=== PATIENT | female | born 1945 | race Caucasian/White ===

== ENCOUNTER 2021-04-05 02:35 | Day surgery (SDC) | payer MEDICARE, SELFPAY ==
[2021-03-19 12:36] VITALS: BMI 25.7
--- NOTE | 2021-04-02 18:27 | WPDANESEPPF ---
Anes - Initial Pre Proc Eval Procedure: Operation Date: 04/05/21 10:30 Proposed Procedures p Colonoscopy - Stephen Thompson MD Date/Time: 04/02/21 18:27 Surgeon: Stephen Thompson MD Pre Op Diagnosis: positive cologuard Patient Data Age: 75 Gender: F Height: 1.6 m Weight: 65.9 kg Allergies Allergy/AdvReac Type Severity Reaction Status Date / Time codeine Allergy Mild NAUSEA AND Verified 04/05/21 09:25 VOMITING latex Allergy Mild HANDS GET Verified 04/05/21 09:25 RED AND BLISTERS Home Medications Medication Instructions Recorded Confirmed Type jzhbacb-zrhnnxkfxfrih-zlysccos 1 tablet PO Q4-6H PRN 03/19/21 03/19/21 History [Excedrin Extra Strength] atorvastatin 10 mg PO DAILY 03/19/21 03/19/21 History escitalopram oxalate 5 mg PO DAILY 03/19/21 03/19/21 History lisinopril 10 mg PO HS 03/19/21 03/19/21 History lorazepam 0.5 mg PO TID PRN 03/19/21 03/19/21 History Patient hx anesthesia problems: none Family hx anesthesia problems: none Results Review: All pre-operative results and documents have been reviewed as part of the pre-operative evaluation. [facility] Past Medical History Medical History (Updated 04/02/21 @ 18:28 by Arash Magdaleno DO) Anxiety Hypertension Surgical History Surgical History (Updated 04/02/21 @ 18:28 by Arash Magdaleno DO) History of hysterectomy History of right hip replacement History of spinal surgery Social History Social History Years smoked: 20 Tobacco type: cigarettes Living arrangements: alone Spiritual care concerns: No Anes - Eval Final PreProcedure Day of Procedure 04/02/21 18:27 Patient weight: overweight Heart: regular rate and rhythm Lungs: clear to auscultation and normal air movement Airway: Mallampati scale class II Neurological: alert and oriented Last oral intake: >/= 8 hours ASA classification: II Emergent: no Anesthetic plan: proceed Anesthesia type and monitoring: general GIVS and standard monitoring Results Review: All pre-operative results and documents have been reviewed as part of the pre-operative evaluation. Informed Consent: The patient's anesthetic plan and its attendant risks and benefits were discussed with the patient/family/POA. Questions were solicited and answers provided to the satisfaction of the patient/family/POA.
[2021-04-05 09:26] VITALS: BP 119/64; PULSE 100; RESP 18; TEMP 36.8; O2SAT 100; BMI 25.4
[2021-04-05] MEDS: LACTATED RINGERS 1,000 ML 150 ML IV CONT (09:42)
--- NOTE | 2021-04-05 09:58 | PM.HPGS ---
History of Present Illness History of Present Illness Consent: Risks, benefits, and alternatives have been discussed and questions answered. Patient agrees to proceed with procedure. Chief complaint: positive cologuard Narrative: Brigette Benson is a 75 year old female here for colon cancer screening. She performed a Cologuard test that was positive PMFSH Past Medical History Medical History Anxiety Hypertension Surgical History Surgical History History of hysterectomy History of right hip replacement History of spinal surgery Social History Social History Years smoked: 20 Tobacco type: cigarettes Living arrangements: alone Spiritual care concerns: No Meds Home Medications and Allergies Home Medications Medication Instructions Recorded Confirmed Type cayomhz-dxnxofgiciotp-vuampinb 1 tablet PO Q4-6H PRN 03/19/21 03/19/21 History [Excedrin Extra Strength] atorvastatin 10 mg PO DAILY 03/19/21 03/19/21 History escitalopram oxalate 5 mg PO DAILY 03/19/21 03/19/21 History lisinopril 10 mg PO HS 03/19/21 03/19/21 History lorazepam 0.5 mg PO TID PRN 03/19/21 03/19/21 History Allergies Allergy/AdvReac Type Severity Reaction Status Date / Time codeine Allergy Mild NAUSEA AND Verified 04/05/21 09:25 VOMITING latex Allergy Mild HANDS GET Verified 04/05/21 09:25 RED AND BLISTERS Vital Signs Vital Signs - 24 hr 04/05/21 09:26 Temperature 36.8 C Pulse Rate 100 Respiratory Rate 18 Blood Pressure 119/64 Pulse Oximetry 100 Exam Resp: Auscultation: clear to auscultation bilaterally Cardio: Rate: regular rate Rhythm: regular rhythm GI: GI Palp: Yes Soft to palpation and No Tenderness to palpation present (GI) Assessment and Plan Assessment and plan (1) Colon cancer screening: Code(s): Z12.11 - Encounter for screening for malignant neoplasm of colon Status: Acute Assessment and Plan: Colonoscopy with possible biopsy or polypectomy or cautery or injection of substances.
[2021-04-05 10:23] VITALS: BP 84/45; PULSE 67; RESP 25; O2SAT 98
[2021-04-05 10:33] VITALS: BP 94/48; PULSE 75; RESP 22; O2SAT 98
[2021-04-05 10:41] VITALS: BP 98/60; PULSE 71; RESP 21; O2SAT 99
== END 2021-04-05 10:52 | disposition home or self-care (01) ==
PROVIDERS: PCP Internal Medicine; Visit Provider Internal Medicine Gastroenterology
PROC: 0DJD8ZZ Inspection of Lower Intestinal Tract, Via Natural or Artificial Opening Endoscopic (ICD-10-PCS; CPT 45378; principal; 2021-04-05 10:30)
DX: Z12.11 Encounter for screening for malignant neoplasm of colon (principal); K57.30 Diverticulosis of large intestine without perforation or abscess without bleeding; R19.5 Other fecal abnormalities; I10 Essential (primary) hypertension; F41.9 Anxiety disorder, unspecified; Z87.891 Personal history of nicotine dependence
CPT/HCPCS: G0121; J2704; J7120

== ENCOUNTER → 2022-11-29 09:09 | Outpatient (CLI) | payer MEDICARE, SELFPAY ==
--- NOTE | ~2022-11-29 | MR_ITS ---
EXAMINATION: MR cervical spine wo con DATE: 11/29/2022 09:57 INDICATION: Cervical radiculopathy. Neck pain. TECHNIQUE: Magnetic resonance imaging (MRI) of the cervical spine was performed without intravenous c ontrast. COMPARISON: None FINDINGS: There is 3 mm anterolisthesis of C3 on C4 and 2 mm anterolisthesis of C7 on T1. Vertebral b rodolfo heights are normal. There are changes of anterior fusion procedure from C4 to C6 with healed inte rbody bone graft. There is moderately decreased disc height at C6-C7 and mildly decreased disc height at C7-T1. The spinal cord signal intensity is normal. The following disc levels are specifically dis cussed: C2-C3: There is a central protrusion. There is no uncovertebral joint osteoarthritis. There is severe bilateral facet joint osteoarthritis. There is no neural foraminal stenosis. There is no central can al stenosis. C3-C4: There is a central extrusion. There is severe bilateral uncovertebral joint osteoarthritis. Th ere is severe bilateral facet joint osteoarthritis. There is moderate bilateral neural foraminal sten osis. There is mild central canal stenosis. C4-C5: There is mild bilateral uncovertebral joint hypertrophy. There is mild bilateral facet joint o steoarthritis. There is mild right neural foraminal stenosis. There is no central canal stenosis. C5-C6: There is moderate right and mild left uncovertebral joint hypertrophy. There is mild bilateral facet joint osteoarthritis. There is moderate right and mild left neural foraminal stenosis. There i s no central canal stenosis. C6-C7: The disc is bulging. There is severe bilateral uncovertebral joint osteoarthritis. There is se oneyda bilateral facet joint osteoarthritis. There is mild bilateral neural foraminal stenosis. There i s mild central canal stenosis. C7-T1: The disc does not extend beyond the endplate margin. There is no uncovertebral joint osteoarth ritis. There is severe bilateral facet joint osteoarthritis. There is mild bilateral neural foraminal stenosis. There is no central canal stenosis. IMPRESSION: 1. Moderate cervical spondylosis. 2. Anterior fusion procedure from C4 to C6. Reviewed, dictated and finalized at location A.
== END ==
PROVIDERS: PCP Internal Medicine; Visit Provider Internal Medicine
DX: M54.12 Radiculopathy, cervical region (principal); M43.02 Spondylolysis, cervical region; Z98.1 Arthrodesis status
CPT/HCPCS: 72141

== ENCOUNTER 2024-06-27 07:49 | Outpatient (CLI) | payer MEDICARE, SELFPAY ==
--- NOTE | ~2024-06-27 | DEXA_ITS ---
Bone Density Report Name: NORIS BROTHERS Age: 79 Sex: Female Ethnicity: White Date of : 1945 Indication: postmenopausal; screening for osteoporosis; height loss; hysterectomy; Referring Provider: PAULA*, DINO Rossi Study: Bone densitometry was performed. Exam Date: June 27, 2024 Accession number: [id number] Bone Density: Region BMD T-score Z-score Classification AP Spine(L1, L2) 1.185 1.9 4.3 Normal Femoral Neck (Left) 0.695 -1.4 0.9 Osteopenia Total Hip (Left) 0.821 -1.0 1.0 Normal World Health Organization criteria for BMD impression classify patients as: Normal (T-score at or above -1.0), Osteopenia (T-score between -1.0 and -2.5), or Osteoporosis (T-score at or below -2.5). 10-year Fracture Risk(1): Major Osteoporotic Fracture 13% Hip Fracture 2.9% Reported Risk Factors: [place] (), Neck BMD=0.695, BMI=25.3 (1) FRAX(R) Version 3.08. Fracture probability calculated for an untreated patient. Fracture probability may be lower if the patient has received treatment. Clinical Information Provided by Patient: Has the following medical conditions: Hysterectomy Patient maximum height was 64.5 Drinks caffeinated beverages Onset of menses at age 12 Number of children 2 Impression: The patient has low bone mass, based on the Left Femoral Neck T-score. The patient has an estimated ten-year risk of hip fracture of 2.9% and an estimated ten-year risk of major fracture of 13%, based on the WHO FRAX algorithm. Discussion: BONE DENSITY IS LOW AT ONE OR MORE SKELETAL SITES. This patient's lowest T-score is low at one or more skeletal sites. It meets the World Health Organization's (WHO) criteria for ?low bone mass? (T-score between -1.0 and -2.5). The patient's 10-year risk of fracture as calculated by FRAX is less than the threshold where pharmacological therapy is recommended by the National Osteoporosis Foundation (NOF). However, all treatment decisions require clinical judgment and consideration of individual patient factors, including patient preferences, comorbidities, previous drug use, risk factors not captured in the FRAX model (e.g., frailty, falls, vitamin D deficiency, increased bone turnover, interval significant decline in bone density) and possible under or overestimation of fracture risk by FRAX. The patient should follow a healthful lifestyle (good nutrition with adequate calcium and vitamin D, and appropriate weight-bearing exercise). Follow-Up: Consider repeating this study in 2 to 3 years to reassess this patient's status, or sooner if there is some new clinical indication. Reported by: CALEB on 06/27/2024 8:30:00 AM. Reviewed, dictated and finalized at location A. [facility]ITALMeliza
== END 2024-06-27 07:50 | disposition home or self-care (01) ==
LOC: ANHIMG 07:52
PROVIDERS: PCP Internal Medicine; Visit Provider Internal Medicine
DX: M85.852 Other specified disorders of bone density and structure, left thigh (principal); M81.0 Age-related osteoporosis without current pathological fracture
CPT/HCPCS: 77080

== ENCOUNTER 2024-09-12 08:49 | Outpatient (CLI) | payer MEDICARE, SELFPAY ==
--- NOTE | ~2024-09-12 | MR_ITS ---
EXAMINATION: MR lumbar spine wo con DATE: 09/12/2024 09:32 INDICATION: Low back pain. TECHNIQUE: Magnetic resonance imaging (MRI) of the lumbar spine was performed without intravenous con trast. COMPARISON: None FINDINGS: There is 5 degrees levocurvature of lumbar spine. There are changes of posterior fusion pro cedure from L3 to L5 with pedicle screws. There are Schmorl's nodes at multiple levels. There is mild ly decreased disc height at L1-L2, moderately decreased disc height at L2-L3, L3-L4, and L4-L5, and m ildly decreased disc height at L5-S1. The distal spinal cord signal intensity is normal. The conus me dullaris is at L1. The following disc levels are specifically discussed: L1-L2: The disc is bulging is an annular fissure. There is severe bilateral facet joint osteoarthriti s. There is mild bilateral neural foraminal stenosis. There is mild central canal stenosis. L2-L3: The disc is bulging and has an annular fissure. There is severe bilateral facet joint osteoart hritis. There is mild right and moderate left neural foraminal stenosis. There is mild central canal stenosis. L3-L4: The disc is bulging. There is no facet joint hypertrophy. There is mild right neural foraminal stenosis. There is no central canal stenosis. There is posterior decompression. L4-L5: The disc is bulging. There is mild bilateral facet joint hypertrophy. There is mild bilateral neural foraminal stenosis. There is no central canal stenosis. There is posterior decompression. L5-S1: The disc is bulging and has an annular fissure. There is severe bilateral facet joint osteoart hritis. There is mild right and moderate left neural foraminal stenosis. There is mild central canal stenosis. IMPRESSION: 1. Moderate lumbar spondylosis. 2. Posterior fusion procedure from L3 to L5. Reviewed, dictated and finalized at location A.
== END 2024-09-12 08:50 | disposition home or self-care (01) ==
LOC: MICIMG 08:51
PROVIDERS: PCP Internal Medicine; Visit Provider Nurse Practitioner Family
DX: M47.816 Spondylosis without myelopathy or radiculopathy, lumbar region (principal); Z98.1 Arthrodesis status
CPT/HCPCS: 72148

== ENCOUNTER 2024-09-19 16:25 | Outpatient (CLI) | payer MEDICARE, SELFPAY ==
--- NOTE | ~2024-09-19 | XR_ITS ---
EXAM: XR lumbar spine 6V w bending DATE: 09/19/2024 16:51 HISTORY: Radiculopathy, lumbar region . COMPARISON: None available. FINDINGS: Decreased mineralization. Uncomplicated posterior lumbar fusion hardware spanning L3-L5. Lo ss of the normal lumbar lordosis. 5 nonrib-bearing lumbar-type vertebral bodies. Pedicles intact. 2 m m anterolisthesis at L1-2 which increases slightly in flexion and reduces slightly in extension. Vert ebral body heights preserved. Multilevel moderate disc space narrowing and mild marginal osteophytosi s. L3 Schmorl's node. Multilevel facet hypertrophy and sclerosis above and below the hardware levels. No fracture or dislocation. Aortic calcification without evident aneurysm. Partially visualized hip arthroplasty hardware IMPRESSION: Osteopenia. Uncomplicated appearing L3-5 posterior fusion hardware. Grade 1 dynamic listh esis at L1-2. Multilevel moderate degenerative disc disease. Multilevel facet arthropathy. Reviewed, dictated and finalized at location K. IMPRESSION: Osteopenia. Uncomplicated appearing L3-5 posterior fusion hardware. Grade 1 dynamic listhesis at L1-2. Multilevel moderate degenerative disc disea se. Multilevel facet arthropathy.
--- NOTE | ~2024-09-19 | XR_ITS ---
EXAM: XR thoracic spine 3V DATE: 09/19/2024 16:51 HISTORY: Radiculopathy, lumbar region . COMPARISON: None available. FINDINGS: Decreased mineralization. Vertebral body alignment intact. Vertebral body heights preserved . Mild concave superior endplate deformities at multiple levels as can be seen with osteoporosis. Mul tilevel mild disc space narrowing and marginal osteophytosis. No traumatic malalignment or fracture. Visualized lung parenchyma is clear. Left hemidiaphragm elevation. IMPRESSION: Osteopenia/osteoporosis. Multilevel mild thoracic degenerative disc disease. Left diaphra gm elevation. Reviewed, dictated and finalized at location K. IMPRESSION: Osteopenia/osteoporosis. Multilevel mild thoracic degenerative disc disease. Left diaphragm elevation.
== END 2024-09-19 16:26 | disposition home or self-care (01) ==
LOC: MICIMG 16:27
PROVIDERS: PCP Internal Medicine; Visit Provider Nurse Practitioner Family
DX: M43.16 Spondylolisthesis, lumbar region (principal); M51.369 Other intervertebral disc degeneration, lumbar region without mention of lumbar back pain or lower extremity pain; M47.816 Spondylosis without myelopathy or radiculopathy, lumbar region; M51.34 Other intervertebral disc degeneration, thoracic region; M81.0 Age-related osteoporosis without current pathological fracture; M85.88 Other specified disorders of bone density and structure, other site; Z98.1 Arthrodesis status; J98.6 Disorders of diaphragm
CPT/HCPCS: 72072; 72114

== ENCOUNTER 2024-10-02 12:46 | Outpatient (CLI) | payer MEDICARE, SELFPAY ==
--- NOTE | ~2024-10-02 | MR_ITS ---
MRI of the cervical spine Clinical History: Radiculopathy Technique: Axial T2-weighted and gradient images, and sagittal T1-weighted, T2-weighted, and STIR sharon ges were acquired. Findings: 3 mm anterolisthesis of C3 over C4 noted. There is fusion across the C4-C5 and C5-C6 disc s paces. There is advanced degenerative disc narrowing at C6-C7. No suspicious bone marrow signal abnor mality seen. At C2-C3, there is minimal disc bulge. There is bilateral facet arthropathy, right worse than left. No spinal canal stenosis, cord compression, or neural foraminal narrowing. At C3-C4, there is disc osteophyte complex with mild to moderate canal stenosis but no ketty cord com pression. There is bilateral facet arthropathy and significant bilateral neural foraminal narrowing. At C4-C5, there is no disc bulge or herniation. No spinal canal stenosis, cord compression, or defini te neural foraminal narrowing. At C5-C6, there is no definite disc bulge or herniation. No spinal canal stenosis, cord compression, or left neural foraminal narrowing. Possible mild right neural foraminal narrowing. At C6-C7, there is mild disc osteophyte complex. There is mild canal stenosis but no ketty cord compr ession. Probable mild right neural foraminal narrowing. No left neural foraminal narrowing. No abnormal signal seen in the spinal cord. Paravertebral soft tissues are unremarkable. Impression: Fusion changes from C4 through C6. 3 mm anterolisthesis of C3 over C4. Moderate degenerative spondylosis at C3-C4, as above. Mild to moderate degenerative spondylosis at C6 -C7. Reviewed, dictated and finalized at [facility]. Impression: Fusion changes from C4 through C6. 3 mm anterolisthesis of C3 over C4. Moderate degenerative spondylosis at C3-C4, as above. Mild to moderate degenera tive spondylosis at C6-C7.
== END 2024-10-02 12:47 | disposition home or self-care (01) ==
LOC: MICIMG 12:47
PROVIDERS: PCP Internal Medicine; Visit Provider Nurse Practitioner Family
DX: M43.12 Spondylolisthesis, cervical region (principal); M47.812 Spondylosis without myelopathy or radiculopathy, cervical region; Z98.1 Arthrodesis status
CPT/HCPCS: 72141